=== PATIENT | female | born 1955 | race Caucasian/White ===

== ENCOUNTER 2021-05-11 11:20 | Day surgery (SDCO) | payer MEDICARE, OTHER ==
[~2021-05-11] VITALS: Ht 172.7 cm; Wt 103.2 kg
[~2021-05-11 11:20] MED LIST: BENTYL10 MG PO; CEFDINIR300 MG PO; COREG 6.25MG6.25 MG PO; CRESTOR20 MG PO; DRISDOL50000 UNIT PO; DULOXETINE HCL20 MG PO; FOLIC ACID1 MG PO; GABAPENTIN600 MG PO; LOSARTAN POTASS25 MG PO; MAG-OXIDE 400M400 MG PO; NORCO 5/3251 EACH PO; PROTONIX 40MG T40 MG PO; [UNRECOGNIZED DRUG - OTHER] IV
[2021-05-11 12:12] LABS: BASOPHIL 0.5 % (0-2); EOSINOPHIL 0.3 % (0-7); HCT 27.3 % (37.0-47.0); HGB 9.1 g/dl (12.5-16.0); LYMPHOCYTE 27.1 % (15-48); MCH 37.3 pg (25.0-31.0); MCHC 33.3 g/dL (32.0-36.0); MCV 111.9 fL (78.0-100.0); MONOCYTE 7.5 % (0-12); MPV 9.3 fL (6.0-9.5); NEUTROPHIL 63.8 % (41-80); NRBC 0; PLT 133 K/uL (150-400); RBC 2.44 M/uL (4.20-5.40); RDW 15.9 % (11.5-14.0); WBC 3.9 K/uL (4.0-10.5)
[2021-05-11 12:34] LABS: CREATININE 0.67 mg/dL (0.51-0.95); POTASSIUM 3.1 mmol/L (3.5-5.1)
[2021-05-12 03:25] LABS: BILIRUBIN 1+ mg/dL (NEGATIVE); BLOOD TRACE-INTACT Ery/uL (NEGATIVE); CLARITY CLEAR (CLEAR); COLOR YELLOW (YELLOW); GLUCOSE (U) NORMAL (NORMAL); LEUKOCYTES NEGATIVE Leu/uL (NEGATIVE); NITRITE NEGATIVE (NEGATIVE); PROTEIN NEGATIVE (NEGATIVE); pH 5.5 (5.0-9.0)
[2021-05-12 03:34] LABS: AMORPHOUS URATES CRYSTALS TRACE; SQUAMOUS EPITHELIAL CELLS RARE
[2021-05-12 06:00] LABS: BASOPHIL 0.9 % (0-2); EOSINOPHIL 0.4 % (0-7); HCT 22.6 % (37.0-47.0); HGB 7.2 g/dl (12.5-16.0); LYMPHOCYTE 35.6 % (15-48); MCH 36.5 pg (25.0-31.0); MCHC 31.9 g/dL (32.0-36.0); MCV 114.7 fL (78.0-100.0); MONOCYTE 16.4 % (0-12); MPV 9.7 fL (6.0-9.5); NEUTROPHIL 45.4 % (41-80); NRBC 0; PLT 111 K/uL (150-400); RBC 1.97 M/uL (4.20-5.40); RDW 16.1 % (11.5-14.0); WBC 2.3 K/uL (4.0-10.5)
[2021-05-12 06:07] LABS: INR 1.13 (0.9-1.2); PROTHROMBIN TIME 13.9 SECONDS (11.8-13.4)
[2021-05-12 06:22] LABS: IRON % SATURATION 65.7 %SAT (20-50)
[2021-05-12 06:46] LABS: ALBUMIN 2.4 g/dL (3.4-5.0); BILIRUBIN - TOTAL 1.2 mg/dL (0.2-1.0); BUN/CREAT RATIO (CALC) 8.1 RATIO; CREATININE 1.11 mg/dL (0.51-0.95); GLOBULIN (CALCULATION) 2.5 g/dL; POTASSIUM 4.2 mmol/L (3.5-5.1); TOTAL PROTEIN 4.9 g/dL (6.4-8.2)
[2021-05-13 06:22] LABS: BASOPHIL 0.4 % (0-2); EOSINOPHIL 0.8 % (0-7); HCT 21.7 % (37.0-47.0); LYMPHOCYTE 33.5 % (15-48); MCH 37.2 pg (25.0-31.0); MCHC 32.3 g/dL (32.0-36.0); MCV 115.4 fL (78.0-100.0); MONOCYTE 14.6 % (0-12); MPV 9.6 fL (6.0-9.5); NEUTROPHIL 49.9 % (41-80); NRBC 0; PLT 80 K/uL (150-400); RBC 1.88 M/uL (4.20-5.40); WBC 2.6 K/uL (4.0-10.5)
[2021-05-13 06:50] LABS: ALBUMIN 2.2 g/dL (3.4-5.0); BILIRUBIN - TOTAL 1.1 mg/dL (0.2-1.0); BUN/CREAT RATIO (CALC) 9.3 RATIO; CREATININE 0.86 mg/dL (0.51-0.95); GLOBULIN (CALCULATION) 2.4 g/dL; MAGNESIUM 1.1 mg/dL (1.8-2.4); POTASSIUM 3.7 mmol/L (3.5-5.1); TOTAL PROTEIN 4.6 g/dL (6.4-8.2)
[2021-05-13 17:21] LABS: MAGNESIUM 1.9 mg/dL (1.8-2.4)
[2021-05-14 08:34] LABS: BASOPHIL 0.6 % (0-2); EOSINOPHIL 1.2 % (0-7); HCT 22.7 % (37.0-47.0); HGB 7.3 g/dl (12.5-16.0); LYMPHOCYTE 31.8 % (15-48); MCH 37.4 pg (25.0-31.0); MCHC 32.2 g/dL (32.0-36.0); MCV 116.4 fL (78.0-100.0); MONOCYTE 16.5 % (0-12); MPV 9.4 fL (6.0-9.5); NRBC 0; PLT 124 K/uL (150-400); RBC 1.95 M/uL (4.20-5.40); RDW 15.6 % (11.5-14.0); WBC 3.3 K/uL (4.0-10.5)
[2021-05-14 08:59] LABS: ALBUMIN 2.3 g/dL (3.4-5.0); BUN/CREAT RATIO (CALC) 8.6 RATIO; CREATININE 0.7 mg/dL (0.51-0.95); GLOBULIN (CALCULATION) 2.6 g/dL; POTASSIUM 4.2 mmol/L (3.5-5.1); TOTAL PROTEIN 4.9 g/dL (6.4-8.2)
[2021-05-14] MEDS ORDERED: KEFLEX250 MG PO (15:55)
[2021-05-14] MEDS ORDERED: MAG-OXIDE 400M400 MG PO (15:55)
[2021-05-14] MEDS ORDERED: UROCIT-K10 MEQ PO (15:56)
== END 2021-05-14 16:30 | disposition home or self-care (01) ==
LOC: FER 11:20 → FMS 15:35
PROVIDERS: Emergency Medicine; Nurse Practitioner; ADMIT Internal Medicine
DX: I95.9 Hypotension, unspecified (principal); N17.9 Acute kidney failure, unspecified; D61.818 Other pancytopenia; D81.9 Combined immunodeficiency, unspecified; I47.2 Ventricular tachycardia; N39.0 Urinary tract infection, site not specified; B96.20 Unspecified Escherichia coli [E. coli] as the cause of diseases classified elsewhere; R94.5 Abnormal results of liver function studies; I10 Essential (primary) hypertension; D64.9 Anemia, unspecified; M54.5 Low back pain; M54.2 Cervicalgia; G89.29 Other chronic pain; E87.6 Hypokalemia; F10.10 Alcohol abuse, uncomplicated; R63.4 Abnormal weight loss; K58.9 Irritable bowel syndrome, unspecified; F32.9 Major depressive disorder, single episode, unspecified; K21.9 Gastro-esophageal reflux disease without esophagitis; Z79.899 Other long term (current) drug therapy; Z88.1 Allergy status to other antibiotic agents; Z88.8 Allergy status to other drugs, medicaments and biological substances; Z20.822 Contact with and (suspected) exposure to COVID-19; Z98.51 Tubal ligation status; Z90.710 Acquired absence of both cervix and uterus; Z90.89 Acquired absence of other organs
CPT/HCPCS: 36415; 71045; 80048; 80053; 81001; 82607; 82728; 83540; 83550; 83735; 84132; 84484; 85025; 85610; 87088; 87186; 93005; G0378; G0463; J0696; J2001; J3475; J7030; U0002

== ENCOUNTER 2021-07-04 18:40 | Inpatient (IN) | payer MEDICARE, OTHER ==
[~2021-07-04] VITALS: Ht 172.7 cm; Wt 107.2 kg
[~2021-07-04 18:40] MED LIST changes: +KEFLEX250 MG PO; +UROCIT-K10 MEQ PO
[2021-07-04 19:18] LABS: BASOPHIL 0.1 % (0-2); EOSINOPHIL 0 % (0-7); HGB 8.5 g/dl (12.5-16.0); LYMPHOCYTE 2.8 % (15-48); MCH 38.5 pg (25.0-31.0); MCHC 32.7 g/dL (32.0-36.0); MCV 117.6 fL (78.0-100.0); MPV 10.1 fL (6.0-9.5); NRBC 0; PLT 153 K/uL (150-400); RBC 2.21 M/uL (4.20-5.40); RDW 16.4 % (11.5-14.0); WBC 9.3 K/uL (4.0-10.5)
[2021-07-04 19:21] LABS: NEUTROPHIL 85.5 % (41-80)
[2021-07-04 19:43] LABS: ALBUMIN 2.4 g/dL (3.4-5.0); BILIRUBIN - TOTAL 2.5 mg/dL (0.2-1.0); CREATININE 0.8 mg/dL (0.51-0.95); GLOBULIN (CALCULATION) 3.4 g/dL; POTASSIUM 3.3 mmol/L (3.5-5.1); TOTAL PROTEIN 5.8 g/dL (6.4-8.2)
[2021-07-04 19:53] LABS: LACTIC ACID 5.4 mmol/L (0.4-1.9)
[2021-07-04 20:31] LABS: BILIRUBIN 2+ mg/dL (NEGATIVE); BLOOD 1+ Ery/uL (NEGATIVE); CLARITY CLOUDY (CLEAR); COLOR BROWN (YELLOW); GLUCOSE (U) NORMAL (NORMAL); LEUKOCYTES 3+ Leu/uL (NEGATIVE); NITRITE POSITIVE (NEGATIVE); PROTEIN 2+ mg/dL (NEGATIVE); SPECIFIC GRAVITY 1.025 (1.001-1.030); pH 5.5 (5.0-9.0)
[2021-07-04 20:39] LABS: BACTERIA 3+; URINARY WBC TNTC
[2021-07-05 06:25] LABS: BASOPHIL 0.1 % (0-2); EOSINOPHIL 0 % (0-7); HCT 22.2 % (37.0-47.0); HGB 7.3 g/dl (12.5-16.0); LYMPHOCYTE 4.2 % (15-48); MCHC 32.9 g/dL (32.0-36.0); MCV 115.6 fL (78.0-100.0); MPV 10.3 fL (6.0-9.5); NEUTROPHIL 84.8 % (41-80); NRBC 0; RBC 1.92 M/uL (4.20-5.40); RDW 16.5 % (11.5-14.0); WBC 7.4 K/uL (4.0-10.5)
[2021-07-05 06:26] LABS: PLT 95 K/uL (150-400)
[2021-07-05 06:31] LABS: INR 1.32 (0.9-1.2); PROTHROMBIN TIME 15.7 SECONDS (11.8-13.4)
[2021-07-05 07:09] LABS: ALKALINE PHOSHATASE 103 U/L (46-116); ALT 45 U/L (14-59); AST 166 U/L (15-37); BILIRUBIN - TOTAL 2.2 mg/dL (0.2-1.0); BUN 20 mg/dL (7-18); BUN/CREAT RATIO (CALC) 23.5 RATIO; C-REACTIVE PROTEIN >18.00 mg/dL (<=0.90); CHLORIDE 102 mmol/L (98-107); CO2 (BICARBONATE) 24 mmol/L (21-32); CREATININE 0.85 mg/dL (0.51-0.95); GLOBULIN (CALCULATION) 2.6 g/dL; GLUCOSE 101 mg/dL (74-106); POTASSIUM 4.1 mmol/L (3.5-5.1); TOTAL PROTEIN 4.6 g/dL (6.4-8.2)
[2021-07-06 06:07] LABS: BASOPHIL 0.1 % (0-2); EOSINOPHIL 0.1 % (0-7); HCT 22.5 % (37.0-47.0); LYMPHOCYTE 5.3 % (15-48); MCH 38.2 pg (25.0-31.0); MCHC 32.4 g/dL (32.0-36.0); MCV 117.8 fL (78.0-100.0); MONOCYTE 6.3 % (0-12); MPV 10.4 fL (6.0-9.5); NRBC 0; PLT 100 K/uL (150-400); RBC 1.91 M/uL (4.20-5.40); RDW 16.1 % (11.5-14.0); WBC 7.1 K/uL (4.0-10.5)
[2021-07-06 06:25] LABS: BUN/CREAT RATIO (CALC) 30.3 RATIO; CREATININE 1.09 mg/dL (0.51-0.95); POTASSIUM 4.2 mmol/L (3.5-5.1)
[2021-07-06 06:26] LABS: MAGNESIUM 2.2 mg/dL (1.8-2.4)
[2021-07-06 06:51] LABS: HGB 7.3 g/dl (12.5-16.0); NEUTROPHIL 87.5 % (41-80)
== END 2021-07-06 20:30 | disposition other institution (70) | DRG 872 ==
LOC: FER 18:40 → FMS 21:55
PROVIDERS: Allergy & Immunology Allergy; Nurse Practitioner; Nurse Practitioner Family; ADMIT Internal Medicine
DX: A41.50 Gram-negative sepsis, unspecified (principal); N30.01 Acute cystitis with hematuria; D61.818 Other pancytopenia; S82.191A Other fracture of upper end of right tibia, initial encounter for closed fracture; T82.514A Breakdown (mechanical) of infusion catheter, initial encounter; I47.2 Ventricular tachycardia; D83.9 Common variable immunodeficiency, unspecified; Z20.822 Contact with and (suspected) exposure to COVID-19; S82.831A Other fracture of upper and lower end of right fibula, initial encounter for closed fracture; R33.9 Retention of urine, unspecified; K21.9 Gastro-esophageal reflux disease without esophagitis; K58.9 Irritable bowel syndrome, unspecified; M85.80 Other specified disorders of bone density and structure, unspecified site; Y83.1 Surgical operation with implant of artificial internal device as the cause of abnormal reaction of the patient, or of later complication, without mention of misadventure at the time of the procedure; W18.30XA Fall on same level, unspecified, initial encounter; Y92.009 Unspecified place in unspecified non-institutional (private) residence as the place of occurrence of the external cause; Z88.2 Allergy status to sulfonamides; Z88.5 Allergy status to narcotic agent; Z88.1 Allergy status to other antibiotic agents; Z88.8 Allergy status to other drugs, medicaments and biological substances; Z90.710 Acquired absence of both cervix and uterus; Z90.89 Acquired absence of other organs; Z98.51 Tubal ligation status; Z98.890 Other specified postprocedural states
CPT/HCPCS: 36415; 71045; 73560; 73590; 80048; 80053; 81001; 82550; 83605; 83735; 84145; 85025; 85610; 85730; 86140; 87040; 87076; 87077; 87088; 87186; 93005; 94010; J0692; J1170; J1650; J1885; J2020; J2270; J2543; J3475; J7030; J7050; J7120; U0002

== ENCOUNTER 2022-01-14 16:36 | Emergency (ER) | payer MEDICARE, OTHER ==
[~2022-01-14] VITALS: Ht 172.7 cm; Wt 107.2 kg
--- NOTE | 2022-01-14 16:43 | NUR ---
PATIENT EXPERIENCED SWELLING OF THE TONGUE AND UPPER LIP, ITCHING ON TONGUE AND HANDS, AND REDNESS ON FACE AND HANDS. STOPPED INFUSION AT 1605 PM, 94 ML OF 200ML OF GAMMAGARD WERE INFUSED PER PORT A CATH. EPINEPHRINE INJECTION IN RIGHT THIGH AND IV BENADRYL WERE GIVEN. CALLED DR. CUTLER AT 1617 PM TO INFORM OF PATIENT STATUS, MD OKAYED FOR BENADRYL IV TO BE GIVEN AND FOR PATIENT TO BE SEND TO EMERGENCY ROOM FOR FURTHER EVALUATION. REYNOLD WALTERS, ASSISTED IN EVALUATION AND CONTACTED PATIENT'S FAMILY TO GIVE UPDATE.
[2022-01-14] MEDS ORDERED: PREDNISONE 20MG20 MG PO (18:30)
== END 2022-01-14 20:10 | disposition home or self-care (01) ==
LOC: FER 16:36
DX: T78.3XXA Angioneurotic edema, initial encounter (principal); L29.9 Pruritus, unspecified; T50.Z15A Adverse effect of immunoglobulin, initial encounter; Z88.1 Allergy status to other antibiotic agents; Z88.5 Allergy status to narcotic agent
CPT/HCPCS: J0171; J1200; J1569; J1642; J2405; J2930

== ENCOUNTER 2022-03-01 16:37 | Inpatient (IN) | payer MEDICARE, OTHER ==
[~2022-03-01] VITALS: Ht 172.7 cm; Wt 92.1 kg
[~2022-03-01 16:37] MED LIST changes: +PREDNISONE 20MG20 MG PO
[2022-03-01 18:07] LABS: BASOPHIL 0.5 % (0-2); EOSINOPHIL 0.1 % (0-7); HCT 34.3 % (37.0-47.0); HGB 11.3 g/dl (12.5-16.0); LYMPHOCYTE 14.3 % (15-48); MCH 34.9 pg (25.0-31.0); MCHC 32.9 g/dL (32.0-36.0); MCV 105.9 fL (78.0-100.0); MPV 9.5 fL (6.0-9.5); NRBC 0; PLT 160 K/uL (150-400); RBC 3.24 M/uL (4.20-5.40); RDW 13.4 % (11.5-14.0); WBC 7.3 K/uL (4.0-10.5)
[2022-03-01 18:18] LABS: INR 1.1 (0.9-1.2); PROTHROMBIN TIME 13.6 SECONDS (11.8-13.4); PTT 28.6 SECONDS (24.4-34.7)
[2022-03-01 18:19] LABS: D-DIMER 0.49 ug/mLFEU (0.00-0.41)
[2022-03-01 18:36] LABS: BILIRUBIN - TOTAL 1.6 mg/dL (0.2-1.0); CREATININE 0.78 mg/dL (0.51-0.95); FT4 (FREE T4) 1.5 ng/dL (0.76-1.46); GLOBULIN (CALCULATION) 3.1 g/dL; MAGNESIUM 1.1 mg/dL (1.8-2.4); POTASSIUM 3.4 mmol/L (3.5-5.1); TOTAL PROTEIN 6.1 g/dL (6.4-8.2)
[2022-03-01 23:02] LABS: BILIRUBIN 2+ mg/dL (NEGATIVE); BLOOD 1+ Ery/uL (NEGATIVE); GLUCOSE (U) NORMAL (NORMAL); LEUKOCYTES 3+ Leu/uL (NEGATIVE); NITRITE POSITIVE (NEGATIVE); PROTEIN 3+ mg/dL (NEGATIVE); SPECIFIC GRAVITY 1.025 (1.001-1.030); pH 5.5 (5.0-9.0)
[2022-03-01 23:06] LABS: CLARITY CLOUDY (CLEAR); COLOR BROWN (YELLOW)
[2022-03-01 23:25] LABS: BACTERIA 4+; URINARY WBC TNTC
--- NOTE | 2022-03-02 01:27 | NUR ---
PATIENT ARRIVED TO FLOOR FROM ER ABLE TO VOICE NEEDS CALL LIGHT IN REACH, BED IN LOW POSITION.
[2022-03-02 03:30] LABS: ALBUMIN 3.4 g/dL (3.4-5.0); BILIRUBIN - DIRECT 0.9 mg/dL (0.00-0.20); BILIRUBIN - TOTAL 1.8 mg/dL (0.2-1.0); GLOBULIN (CALCULATION) 3.1 g/dL; TOTAL PROTEIN 6.5 g/dL (6.4-8.2)
[2022-03-03 06:41] LABS: BASOPHIL 0.6 % (0-2); EOSINOPHIL 0.9 % (0-7); HCT 26.9 % (37.0-47.0); HGB 8.8 g/dl (12.5-16.0); LYMPHOCYTE 19.2 % (15-48); MCH 35.5 pg (25.0-31.0); MCHC 32.7 g/dL (32.0-36.0); MCV 108.5 fL (78.0-100.0); MONOCYTE 17.1 % (0-12); MPV 9.2 fL (6.0-9.5); NEUTROPHIL 61.3 % (41-80); NRBC 0; PLT 137 K/uL (150-400); RBC 2.48 M/uL (4.20-5.40); RDW 14.1 % (11.5-14.0); WBC 3.3 K/uL (4.0-10.5)
[2022-03-03 07:10] LABS: ALBUMIN 2.9 g/dL (3.4-5.0); BILIRUBIN - DIRECT 0.7 mg/dL (0.00-0.20); BILIRUBIN - TOTAL 1.3 mg/dL (0.2-1.0); CREATININE 0.92 mg/dL (0.51-0.95); GLOBULIN (CALCULATION) 2.9 g/dL; MAGNESIUM 1.5 mg/dL (1.8-2.4); POTASSIUM 3.2 mmol/L (3.5-5.1); TOTAL PROTEIN 5.8 g/dL (6.4-8.2)
--- NOTE | 2022-03-03 15:16 | NUR ---
03/03/22 An appointment for Outpatient PT was scheduled for 03/04/22 at 4:15.
[2022-03-04 07:16] LABS: BASOPHIL 0.7 % (0-2); HCT 28.2 % (37.0-47.0); HGB 9.1 g/dl (12.5-16.0); LYMPHOCYTE 28.2 % (15-48); MCH 35.5 pg (25.0-31.0); MCHC 32.3 g/dL (32.0-36.0); MCV 110.2 fL (78.0-100.0); MONOCYTE 16.3 % (0-12); MPV 9.3 fL (6.0-9.5); NEUTROPHIL 53.1 % (41-80); NRBC 0; PLT 154 K/uL (150-400); RBC 2.56 M/uL (4.20-5.40); RDW 14.1 % (11.5-14.0)
[2022-03-04 07:26] LABS: BILIRUBIN - TOTAL 1.3 mg/dL (0.2-1.0); BUN/CREAT RATIO (CALC) 10.1 RATIO; CREATININE 0.89 mg/dL (0.51-0.95); GLOBULIN (CALCULATION) 3.1 g/dL; POTASSIUM 3.9 mmol/L (3.5-5.1); TOTAL PROTEIN 6.1 g/dL (6.4-8.2)
[2022-03-04] MEDS ORDERED: TRAMADOL HCL50 MG PO (08:37)
[2022-03-04] MEDS ORDERED: VITAMIN B-1100 M1 PO (08:37)
--- NOTE | 2022-03-04 09:52 | NUR ---
03/04 A referral was made to [facility] for a 3in1 per patient request.
== END 2022-03-04 13:05 | disposition home or self-care (01) | DRG 690 ==
LOC: FER 16:37 → FMS 03-02 00:28
PROVIDERS: Emergency Medicine; Family Medicine; Hospitalist; ADMIT Internal Medicine
PROC: B24BZZZ Ultrasonography of Heart with Aorta (ICD-10-PCS; principal; 2022-03-02)
DX: N30.00 Acute cystitis without hematuria (principal); D61.818 Other pancytopenia; D84.9 Immunodeficiency, unspecified; I10 Essential (primary) hypertension; E78.5 Hyperlipidemia, unspecified; F41.9 Anxiety disorder, unspecified; F32.A Depression, unspecified; R55 Syncope and collapse; K21.9 Gastro-esophageal reflux disease without esophagitis; M25.561 Pain in right knee; M54.9 Dorsalgia, unspecified; G89.29 Other chronic pain; W19.XXXA Unspecified fall, initial encounter; R74.8 Abnormal levels of other serum enzymes; F10.10 Alcohol abuse, uncomplicated; E87.6 Hypokalemia; E83.42 Hypomagnesemia; D53.9 Nutritional anemia, unspecified; R29.6 Repeated falls; Z90.710 Acquired absence of both cervix and uterus; Z98.890 Other specified postprocedural states; Z88.2 Allergy status to sulfonamides; Z88.1 Allergy status to other antibiotic agents; Z88.8 Allergy status to other drugs, medicaments and biological substances
CPT/HCPCS: 36415; 70450; 71045; 71250; 72125; 72128; 72131; 73560; 80048; 80053; 80076; 81001; 83605; 83735; 83880; 84145; 84439; 84443; 84484; 85025; 85379; 85610; 85730; 87040; 87088; 93005; 94010; 97162; 97166; 97530; 97530-GP; J0692; J0696; J0744; J1642; J1650; J1885; J2270; J2405; J3475; J7030

== ENCOUNTER 2022-07-04 16:55 | Inpatient (IN) | payer MEDICARE, OTHER ==
[~2022-07-04] VITALS: Ht 173 cm; Wt 93.0 kg
[~2022-07-04 16:55] MED LIST changes: +TRAMADOL HCL50 MG PO; +VITAMIN B-1100 M1 PO
[2022-07-04 17:47] LABS: BASOPHIL 0.6 % (0-2); EOSINOPHIL 0.1 % (0-7); HCT 27.6 % (37.0-47.0); HGB 9.1 g/dl (12.5-16.0); LYMPHOCYTE 19.5 % (15-48); MCH 37.1 pg (25.0-31.0); MCV 112.7 fL (78.0-100.0); MONOCYTE 3.9 % (0-12); MPV 9.3 fL (6.0-9.5); NEUTROPHIL 75.3 % (41-80); NRBC 0; PLT 160 K/uL (150-400); RBC 2.45 M/uL (4.20-5.40); RDW 17.7 % (11.5-14.0); WBC 7.7 K/uL (4.0-10.5)
[2022-07-04 17:57] LABS: INR 1.1 (0.9-1.2); PROTHROMBIN TIME 13.9 SECONDS (11.9-13.9); PTT 29.5 SECONDS (24.9-34.6)
[2022-07-04 18:17] LABS: ALBUMIN 3.4 g/dL (3.4-5.0); BUN/CREAT RATIO (CALC) 15.2 RATIO; CREATININE 0.66 mg/dL (0.51-0.95); GLOBULIN (CALCULATION) 3.5 g/dL; POTASSIUM 3.3 mmol/L (3.5-5.1); TOTAL PROTEIN 6.9 g/dL (6.4-8.2)
[2022-07-04 20:50] LABS: BILIRUBIN NEGATIVE (NEGATIVE); BLOOD 3+ Ery/uL (NEGATIVE); CLARITY CLEAR (CLEAR); COLOR YELLOW (YELLOW); GLUCOSE (U) NORMAL (NORMAL); LEUKOCYTES NEGATIVE Leu/uL (NEGATIVE); NITRITE NEGATIVE (NEGATIVE); PROTEIN TRACE (LOW) mg/dL (NEGATIVE); SPECIFIC GRAVITY 1.015 (1.001-1.030); pH 5.5 (5.0-9.0)
[2022-07-04 21:06] LABS: BACTERIA TRACE; URINARY RBC 20-50
[2022-07-04] MEDS ORDERED: MIDODRINE HCL2.5 MG PO (23:12)
[2022-07-04] MEDS ORDERED: ONDANSETRON HCL4 MG PO (23:14)
[2022-07-04 23:32] LABS: MAGNESIUM 1.3 mg/dL (1.8-2.4)
[2022-07-05 06:09] LABS: BASOPHIL 0.3 % (0-2); EOSINOPHIL 0 % (0-7); HCT 24.2 % (37.0-47.0); HGB 8.1 g/dl (12.5-16.0); LYMPHOCYTE 7.8 % (15-48); MCH 37.7 pg (25.0-31.0); MCHC 33.5 g/dL (32.0-36.0); MCV 112.6 fL (78.0-100.0); MONOCYTE 7.5 % (0-12); MPV 9.8 fL (6.0-9.5); NEUTROPHIL 83.9 % (41-80); NRBC 0; PLT 128 K/uL (150-400); RBC 2.15 M/uL (4.20-5.40); RDW 18.1 % (11.5-14.0); WBC 7.7 K/uL (4.0-10.5)
[2022-07-05 06:31] LABS: BUN/CREAT RATIO (CALC) 12.5 RATIO; CREATININE 0.96 mg/dL (0.51-0.95); POTASSIUM 4.4 mmol/L (3.5-5.1)
[2022-07-05 06:51] LABS: BAND 11 % (0-10); LYMPHOCYTE(M) 8 % (15-48); MONOCYTE(M) 5 % (0-12); NEUTROPHILS(M) 76 % (41-80)
[2022-07-05 06:52] LABS: PLATELET ESTIMATE DECREASED; PLATELET MORPHOLOGY NORMAL
[2022-07-06 06:09] LABS: HCT 18.9 % (37.0-47.0); MCH 37.7 pg (25.0-31.0); MCHC 32.3 g/dL (32.0-36.0); MPV 10.6 fL (6.0-9.5); RBC 1.62 M/uL (4.20-5.40); RDW 17.3 % (11.5-14.0); WBC 9.9 K/uL (4.0-10.5)
[2022-07-06 06:22] LABS: HGB 6.1 g/dl (12.5-16.0); MCV 116.7 fL (78.0-100.0)
[2022-07-06 06:24] LABS: BUN/CREAT RATIO (CALC) 11.5 RATIO; CREATININE 1.92 mg/dL (0.51-0.95); POTASSIUM 5.3 mmol/L (3.5-5.1)
[2022-07-06 14:55] LABS: BUN/CREAT RATIO (CALC) 11.5 RATIO; CREATININE 2.08 mg/dL (0.51-0.95); POTASSIUM 4.4 mmol/L (3.5-5.1)
--- NOTE | 2022-07-06 21:33 | NUR ---
1ST UNIT OF [facility] ENDED AT 2044. V\S CHARTED RECHARTED TO 2044. ERROR TIME FOR 1944
[2022-07-07 06:42] LABS: BASOPHIL 0.2 % (0-2); EOSINOPHIL 0.2 % (0-7); HCT 23.4 % (37.0-47.0); HGB 7.9 g/dl (12.5-16.0); LYMPHOCYTE 17.5 % (15-48); MCHC 33.8 g/dL (32.0-36.0); MONOCYTE 8.6 % (0-12); MPV 9.7 fL (6.0-9.5); NEUTROPHIL 72.8 % (41-80); NRBC 0; PLT 116 K/uL (150-400); RBC 2.37 M/uL (4.20-5.40); RDW 22.6 % (11.5-14.0)
[2022-07-07 07:07] LABS: MCH 33.3 pg (25.0-31.0); MCV 98.7 fL (78.0-100.0)
[2022-07-07 07:08] LABS: WBC 5.6 K/uL (4.0-10.5)
[2022-07-07 08:12] LABS: BUN/CREAT RATIO (CALC) 15.2 RATIO; CREATININE 1.97 mg/dL (0.51-0.95); POTASSIUM 4.5 mmol/L (3.5-5.1)
[2022-07-08 06:08] LABS: HCT 24.9 % (37.0-47.0); HGB 8.4 g/dl (12.5-16.0); MCHC 33.7 g/dL (32.0-36.0); MCV 100.8 fL (78.0-100.0); MPV 9.7 fL (6.0-9.5); RBC 2.47 M/uL (4.20-5.40); RDW 21.9 % (11.5-14.0); WBC 5.6 K/uL (4.0-10.5)
[2022-07-08 06:17] LABS: BUN/CREAT RATIO (CALC) 19.6 RATIO; CREATININE 1.38 mg/dL (0.51-0.95); POTASSIUM 4.3 mmol/L (3.5-5.1)
--- NOTE | 2022-07-08 16:46 | NUR ---
07/08/22 Ms. Meade requested SNF placement at [facility] or [place]. [facility] has declined and [place] accepted for admission on 07/09/22. Ms. Meade will discuss transportation with her spouse. . - Dr. Carnes's office faxed a statement saying patient could miss her IV/IG while she is in [place].
[2022-07-09 06:33] LABS: POTASSIUM 3.6 mmol/L (3.5-5.1)
[2022-07-09] MEDS ORDERED: XARELTO10 MG PO (10:31)
[2022-07-09] MEDS ORDERED: FEOSOL325 MG PO (10:31)
[2022-07-09] MEDS ORDERED: NORCO 5-325 TA1 EACH PO (10:31)
[2022-07-09] MEDS ORDERED: TAB-A-VITE TA400 MC1 PO (10:31)
== END 2022-07-09 13:56 | DRG 521 ==
LOC: FER 16:55 → FMS 19:28
PROVIDERS: Emergency Medicine; Family Medicine; Internal Medicine; Legal Medicine; ADMIT Internal Medicine
PROC: 8E0ZXY6 Isolation (ICD-10-PCS; 2022-07-04)
PROC: B24BZZZ Ultrasonography of Heart with Aorta (ICD-10-PCS; 2022-07-05)
PROC: 0SR90JA Replacement of Right Hip Joint with Synthetic Substitute, Uncemented, Open Approach (ICD-10-PCS; principal; 2022-07-05 12:00)
PROC: 30233N1 Transfusion of Nonautologous Red Blood Cells into Peripheral Vein, Percutaneous Approach (ICD-10-PCS; 2022-07-06)
PROC: 30233N1 Transfusion of Nonautologous Red Blood Cells into Peripheral Vein, Percutaneous Approach (ICD-10-PCS; 2022-07-06)
DX: S72.011A Unspecified intracapsular fracture of right femur, initial encounter for closed fracture (principal); N17.0 Acute kidney failure with tubular necrosis; U07.1 COVID-19; D62 Acute posthemorrhagic anemia; D83.9 Common variable immunodeficiency, unspecified; D69.6 Thrombocytopenia, unspecified; E87.5 Hyperkalemia; F10.10 Alcohol abuse, uncomplicated; W19.XXXA Unspecified fall, initial encounter; Y92.009 Unspecified place in unspecified non-institutional (private) residence as the place of occurrence of the external cause; D53.9 Nutritional anemia, unspecified; D51.9 Vitamin B12 deficiency anemia, unspecified; D52.9 Folate deficiency anemia, unspecified; I95.1 Orthostatic hypotension; I12.9 Hypertensive chronic kidney disease with stage 1 through stage 4 chronic kidney disease, or unspecified chronic kidney disease; N18.30 Chronic kidney disease, stage 3 unspecified; E86.0 Dehydration; R35.0 Frequency of micturition; E87.6 Hypokalemia; E83.42 Hypomagnesemia; E66.9 Obesity, unspecified; Z79.899 Other long term (current) drug therapy; Z68.31 Body mass index [BMI] 31.0-31.9, adult
CPT/HCPCS: 36415; 36430; 71045; 73501; 73502; 73590; 76770; 80048; 80053; 81001; 82553; 83735; 84484; 85025; 85610; 85730; 86850; 86900; 86901; 86922; 88305; 93005; 94010; 94760; 96374; 96375; 97110; 97162; 97167; 97530; 97530-GP; 97535; C1713; C1776; G0480; J0171; J1170; J1642; J1885; J2250; J2370; J2405; J2704; J2795; J3010; J3475; J3480; J7030; J7120; P9016; U0002